=== PATIENT | female | born 1970 | race Caucasian/White ===

== ENCOUNTER 2022-07-12 17:00 | Outpatient (RCR) | payer OTHER, SELFPAY | END 2022-08-16 16:56 | disposition home or self-care (01) | LOC: HO.PT 17:00 | PROVIDERS: PCP Physician Assistant Medical; Visit Provider Orthopaedic Surgery | DX: Z98.890 Other specified postprocedural states (principal) | CPT/HCPCS: 97110; 97112; 97116; 97140; 97161 ==

== ENCOUNTER 2025-04-11 08:35 | Emergency (ER) | payer OTHER, SELFPAY ==
--- NOTE | ~2025-04-11 | XR_ITS ---
EXAMINATION: XR HIP, RIGHT CLINICAL INFORMATION: Rt hip pain COMPARISON: None available. TECHNIQUE: AP pelvis and AP and frog-leg views of the right hip. FINDINGS: SI joints are symmetrical and not degenerated. Pubic symphysis joint demonstrates chondrocalcinosis.. Pelvic calcifications are likely phleboliths. The right hip joint demonstrates minimal axial joint space narrowing with moderately sized marginal osteophytes on the femoral head and small acetabular osteophytes. Small faint calcific density is visible cephalad to the right greater trochanter. XR/XR hip RT w PEL1V IMPRESSION: Moderate osteoarthritis of the right hip joint is likely secondary to CPPD arthropathy. Possible calcific tendinitis of the right gluteal tendons. Electronically signed by: Ramirez Barajas MD 04/11/2025 10:48 AM EDT
--- NOTE | ~2025-04-11 | US_ITS ---
EXAMINATION: US TRIPLEX LOWER EXTREMITY, RIGHT CLINICAL INFORMATION: Right lower extremity edema COMPARISON: None available. TECHNIQUE: Color-flow triplex imaging with spectral analysis and compression Doppler were performed on the right lower extremity. FINDINGS: Respiratory variation, normal compression and augmented flow are noted throughout the right lower extremity. The visualized common femoral vein, superficial femoral vein, profunda femoral vein, popliteal vein and midcalf peroneal and posterior tibial venous segments show no evidence of deep venous thrombosis. US/US venous duplex LE RT IMPRESSION: No evidence of deep venous thrombosis involving the right lower extremity. Electronically signed by: Ramirez Barajas MD 04/11/2025 11:00 AM EDT
[2025-04-11 09:19] VITALS: BP 111/51; PULSE 63; RESP 18; TEMP 36.8; O2SAT 96; BMI 26.4
--- OUTSIDE RECORDS SUMMARY | 2025-04-11 10:40 | XMS_ITS ---
Author Name [facility] Organization Unknown Care Team Organization Name Specialty Phone Email Start Date End Da te [facility] Abhishek Bhatt DO Primary Care 06/07/202202/28
--- OUTSIDE RECORDS SUMMARY | 2025-04-11 10:40 | XMS_ITS | Clinical Summary ---
Author Organization [facility] [address] [facility] [address] Address [address] [place] [address] Phone Care Team Providers Care Icu Clerk Name Role Phone Abhishek Bhatt DO Primary Care Provider [phone] Surgical History Surgery Date Site/Laterality Comments BACK SURGERY 2005 PROCEDURE: HISTORICAL BACK SURGERY; COMMENT: spinal infusion with titanium disc replacement. Dr. Zayas OTHER SURGICAL HISTORY 1995 PROCEDURE: [place] UNLISTED PROCEDURE VASCULAR SURGERY; COMMENT: varicose veins right leg - [facility] COLONOSCOPY 05/18/2022 PROCEDURE: HISTORICAL COLONOSCOPY; COMMENT: tubular adenoma Medical History Medical History Date Comments Herniated lumbar intervertebral disc DX:Herniated lumbar intervertebral disc Hepatitis C DX:Hepatitis C Depression DX:Depression Anxiety state DX:Anxiety state Family History Medical History Relation Name Comments Other: herniated discs Brother 1 Other: herniated disc Brother 2 Titani um rods Alcohol/Drug Father Diabetes Father Other cancer Father pancreatic Heart attack Maternal Grandfather Heart attack Maternal Grandmother Other: Liver Cancer Paternal Grandfather Other cancer Sister 1 Breast cancer, diagnosed age 44 yr Relation Name Status Comments Brother 1 Brother 2 Brother 3 Alive Asthma - hernia shirley disc Brother 4 Alive titianium rods in back age 35 years Father Bone Cancer - D iabetes- Alcoholism Maternal Grandfather (Age 49) [place] Maternal Grandmother (Age 65) [place] Mother (Age 69) f rom C-diff Paternal Grandfather (Age 70) li zita cancer Paternal Grandmother (Age 98) Sister 1 Sister 2 Alive Sister 3 Alive Breast cancer Social History Tobacco Use Types Packs/Day Years Used Date Smoking Tobacco: Every Day Cigarettes Smokeless Tobacco: Never Alcohol Use Standard Drinks/Week Comments Not Currently 0.8 (1 standard drink = 0.6 oz p ure alcohol) Housing Instability Answer Date Recorde d Are you worried that in the next 2 months you may not have stable housing? Yes 10/25/2024 Food Access & Nutrition Answer Date Rec orded Do you have access to a vari ety of food including fruits and vegetables? No 10/25/2024 Access to Healthcare Answer Date Record ed Within the last 3 months, ho w many times did you visit the emergency department for your medical care? 0 10/25/2024 Health Literacy Answer Date Recorded How often do you need to hav e someone help you when you read instructions, pamphlets, or other written material from your doctor or pharmacy? Never 10/25/2024 Caregiver: How often do you need to have someone help you when you read instructions, pamphlets, or other written material from your doctor or pharmacy? Not on file 10/25/2024 Financial Risk Answer Date Recorded How hard is it for you to pa y for the very basics like food, housing, medical care, and air conditioning / heating? Very hard 10/25/2024 Transportation Answer Date Recorded Has the lack of transportati on kept you from meetings, work, or from getting things needed for daily living? No Has the lack of transportati on kept you from medical appointments or from getting medications? No 10/25/2024 Social Isolation Answer Date Recorded How often do you feel lonely or isolated from those around you? Sometimes 10/25/2024 Food Risk Answer Date Recorded Within the past 12 months we worried whether our food would run out before we got money to buy more. Sometimes true 025 Within the past 12 months th e food we bought just didn't last and we didn't have money to get more. Sometimes true 10/25/2024 Dependent Care Answer Date Recorded Do you need help finding or paying for care for your loved ones. For example, director of early childhood or elderly care for an older adult? No 10/25/2024 Education Answer Date Recorded Do you think completing more education or training, like finishing a GED, going to college, or learning a trade, would be helpful for you? Patient declined 10/25/2024 Employment and Income Answer Date Recor ded During the last four weeks, have you been actively looking for work? Patient declined 10/25/2024 Living Situation Answer Date Recorded What is your living situation? 0 10/25/2024 Comments Unknown Sex and Gender Information Value Date Recorded Sex Assigned at Not on file Legal Sex Female 1:07 PM EST Gender Identity Not on file Sexual Orientation Not on file Obstetrics History Last Filed Vital Signs Vital Sign Reading Time Taken Comments Blood Pressure 128/59 07/27/2023 10:01 AM EST Pulse 67 07/27/2023 10:01 AM EST Temperature - - Respiratory Rate - - Oxygen Saturation - - Inhaled Oxygen Concentration - - Weight 72.5 kg (159 lb 12.8 oz) 023 10:01 AM EST Height 154.9 cm (5' 1 ) 07/27/2023 10:0 1 AM EST Body Mass Index 30.19 07/27/2023 10:01 AM EST Plan of Treatment Health Maintenance Due Date Last Done Comments Breast Cancer Screening 1968 Hepatitis A Vaccines (1 of 2 - Risk 2-dose series) 02/20/1987 Hepatitis B Vaccines (1 of 3 - 19+ 3-dose series) 02/20/1987 Pneumococcal Vaccine: 50+ Years (1 of 2 - PCV) 02/20/1987 Cervical Cancer Screening: P ap Smear 02/20/1989 Zoster Vaccines (1 of 2) 02/20/2018 Colorectal Cancer Screening: Colonoscopy 07/09/2022 HIV Screening 07/09/2022 Hepatitis C Screening 07/09/2022 DTaP,Tdap,and Td Vaccines (2 - Td or Tdap) 10/31/2023 10/30/2013 COVID-19 Vaccine (4 - 2024-2 6 season) 2025 09/21/2021, 12/07/2020, 11/07/2020 Influenza Vaccine (#1) 2025 , 04/23/2016 Social Influencers of Health Screening 10/25/2025 10/25/2024 Depression Screening Completed 10/25/2024 HIB Vaccines Aged Out No longer eligi ble based on patient's age to complete this topic HPV Vaccines Aged Out No longer eligi ble based on patient's age to complete this topic IPV Vaccines Aged Out No longer eligi ble based on patient's age to complete this topic MMR Vaccines Aged Out No longer eligi ble based on patient's age to complete this topic Meningococcal ACWY Vaccine Aged Out N o longer eligible based on patient's age to complete this topic Meningococcal B Vaccine Aged Out No l onger eligible based on patient's age to complete this topic RSV Immunization Patients Under 20 months Aged Out No longer eligible b ased on patient's age to complete this topic Varicella Vaccines Aged Out No longer eligible based on patient's age to complete this topic Insurance AET[employer] Care Teams Icu Clerk Relationship Specialty Start Date End Date Abhishek Bhatt DO PCP - General Internal Medicine 10/04/21
[2025-04-11 11:25] VITALS: BP 113/64; PULSE 63; RESP 20; TEMP 36.8; O2SAT 97
[2025-04-11 11:57] LABS: MANUAL DIFF FLAG NO
[2025-04-11 12:01] LABS: Hematocrit 34.5 % (37.0-47.0); Hemoglobin 11.5 g/dl (12.0-16.0); Imm Gran Abs Auto 0.03 X10*3/uL (0.00-0.03); Imm Gran Pct Auto 0.5 % (0.0-0.4); Lymphocytes Absolute Auto 1.8 X10*3/uL (1.2-4.9); Mean Corpuscular HGB Conc 33.3 g/dl (31.0-35.0); Mean Corpuscular Hemoglobin 34.0 pg (27.0-33.0); Mean Corpuscular Volume 102.1 fL (80.0-98.0); NRBC Abs Auto 0.000 X10*3/uL (0.0-0.012); NRBC Pct Auto 0.0 /100WBC (0.0-0.2); Platelet Count 175 X10*3/uL (160-400); Red Blood Count 3.38 X10*6/uL (4.20-5.50); White Blood Count 6.6 X10*3/uL (4.8-10.8)
--- NOTE | 2025-04-11 12:01 | ED.GENADULT ---
HPI - General Adult General Chief complaint: Extremity Problem Stated complaint: right leg issue Time Seen by Provider: 04/11/25 09:22 Source: patient Mode of arrival: ambulatory Limitations: no limitations History of Present Illness ED Provider: LIZ Cowan HPI narrative: This is a 55-year-old female presenting to the emergency department with complaints of right hip pain ongoing for the past month or so progressively worsening she reports stiffness and difficulty with external rotation. She tells me that she thought it would go away on its own however it does not seem to be helping. She also tells me that she noted pain behind the right knee and right lower extremity swelling over the past few days. This is what prompted her to come in today. She denies associated chest pain, shortness of breath, trauma. She denies history of DVT or PE. Not anticoagulated. No recent travel, not on OCPs. She is a daily smoker however. Related Data Home Medications ?Medication ?Instructions ?Recorded ?Confirmed buspirone 7.5 mg tablet 7.5 mg PO TID 04/11/25 04/11/25 sertraline 100 mg tablet 150 mg PO DAILY 04/11/25 04/11/25 trazodone 50 mg tablet 25 - 50 mg PO BEDTIME 04/11/25 04/11/25 Previous Rx's ?Medication ?Instructions ?Recorded ketorolac 10 mg tablet 10 mg PO TID PRN pain 5 days #15 04/11/25 tabs Allergies Allergy/AdvReac Type Severity Reaction Status Date / Time acetaminophen (From Vicodin) Allergy Intermediate Vomiting Verified 04/11/25 09:21 hydrocodone (From Vicodin) Allergy Intermediate Vomiting Verified 04/11/25 09:21 Review of Systems Review of Systems: Yes all other systems are reviewed and are negative [facility] Past Medical History Attestation statement: The following information was validated with the patient. Source: old records reviewed and nursing notes reviewed Social History Social History Advance Directives: No Advance Directives Information Provided: Yes Physical Exam ED Exam Exam: Appearance: Alert.? Oriented X3.? No acute distress.? Ambulating with steady gait normal coordination Head: Normocephalic, atraumatic, no step-offs or deformities Eyes: Pupils equal, round and reactive to light.? ENT: Pharynx normal.? Neck: Normal inspection.? Neck supple.? CVS: Normal heart rate and rhythm.? Pulses normal.? Respiratory: No respiratory distress.? Breath sounds normal.? Abdomen: Soft and nontender.? Skin: Skin warm and dry.? Normal skin color.? Normal skin turgor.? Extremities: No lower extremity edema.? No calf ttp. 5/5 strength to bilateral upper and lower extremities 2+ dorsalis pedis, anterior tibialis posterior tibialis pulses equal bilateral. Negative Homans bilaterally. Painful external rotation of right hip however normal flexion, extension. Normal range of motion to left hip. Neuro: Oriented X 3.? No motor deficit.? No sensory deficit. CN 2-12 intact Vital Signs: Vital Signs - 24 hr 04/11/25 09:19 04/11/25 11:25 Temperature 98.3 F 98.3 F Pulse Rate 63 63 Respiratory Rate 18 20 Blood Pressure 111/51 L 113/64 Pulse Oximetry 96 97 Oxygen Delivery Method Room Air Room Air BMI result Body Mass Index 26.4 vss Course Reevaluation(s) Reevaluation #1: Venous duplex no evidence of DVT to right lower extremity. 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 Patient will be given Toradol and patient will be discharged home on same. Will have her follow up with the orthopedic team. Educated patient on diagnosis and treatment plan, answered all question, patient verbalizes understanding. At this time patient will be discharged home, advised to return with new or worsening symptoms. Educated on worrisome signs and symptoms and when to return. At this time I feel comfortable discharge home. Time: 12:06 Medical Decision Making Medical Decision Making MDM Narrative: 55-year-old female presents with right lower extremity swelling times few days and right hip pain ongoing for a month. No history of DVT or PE. Not anticoagulated. Not high-risk for these. Physical exam significant for 5/5 strength to bilateral upper and lower extremities 2+ dorsalis pedis, anterior tibialis posterior tibialis pulses equal bilateral. Negative Homans bilaterally. Painful external rotation of right hip however normal flexion, extension. Normal range of motion to left hip. History and physical exam concerning for dependent edema as it is not currently present at this time. Unlikely arterial or venous occlusion. Right hip pain likely tendinopathy versus oa. Unlikely necrosis of hip, fracture dislocation as this is atraumatic. No signs of neurovascular compromise or acute threat to limb. Will obtain imaging of hip/pelvis and venous duplex of right lower extremity. Differential Diagnosis Differential Diagnoses: The differential diagnosis associated with the presentation includes (History and physical exam concerning for dependent edema as it is not currently present at this time. Unlikely arterial or venous occlusion. Right hip pain likely tendinopathy versus oa. Unlikely necrosis of hip, fracture dislocation as this is atraumatic. No signs of neurovascular compromise or) Admission/Observation Consideration of admission/observation: Escalation of care including admission/observation considered Lab Data MDM Lab Attestation statement: I reviewed the patient's lab results. 04/11/25 11:51 04/11/25 11:51 Independent Interpretation I performed an independent interpretation of an: Plain X-Ray ( XR/XR hip RT w PEL1V IMPRESSION: Moderate osteoarthritis of the right hip joint is likely secondary to CPPD arthropathy. Possible calcific tendinitis of the right gluteal tendons.) and Ultrasound (FINDINGS: Respiratory variation, normal compression and augmented flow are noted throughout the right lower extremity. The visualized common femoral vein, superficial femoral vein, profunda femoral vein, popliteal vein and midcalf peroneal and posterior tibial venous segments show no evidence of) Radiology Impression Discussion of test interpretation with radiology: I have reviewed the radiologist's reading. External Record Review External record reviewed: Inpatient record, Office record, Outpatient record, Prior outpatient labs, Prior outpatient radiology, Primary care record and Outside ED record Critical Care Time Critical Care Time Critical Care Time: No Discharge Plan Discharge Clinical Impression: Lower extremity edema, Acute pain of right hip Patient Disposition: Home, Self-Care Instructions: Leg Edema (ED), Hip Pain (ED) Additional Instructions: Take your medications as prescribed. If you were prescribed antibiotics today, it is important that you take your medication to their entirety, do not skip any doses, do not finish them early. Follow-up with your primary care provider this week. Return to the emergency department with new or worsening symptoms. Such as fevers, chills, chest pain, shortness of breath, nausea, vomiting, dizziness, headache, vision changes, lethargy In case of emergency call 911 Prescriptions: New ketorolac 10 mg tablet 10 mg PO TID PRN (Reason: pain) 5 Days Qty: 15 0RF Rx Instructions: Tolerated IM or IV in department No Action trazodone 50 mg tablet 25 - 50 mg PO BEDTIME sertraline 100 mg tablet 150 mg PO DAILY buspirone 7.5 mg tablet 7.5 mg PO TID Referrals: [facility] Orthopedic Surgeons [Provider Group] Stand Alone Forms: Work/School Release Print Language: British
[2025-04-11 12:18] LABS: Alanine Aminotransferase 17 U/L (0-31); Albumin Level 3.9 g/dL (3.5-5.0); Alkaline Phosphatase 68 U/L (39-117); Anion Gap 11 (12-20); Aspartate Amino Transferase 31 U/L (5-31); Blood Urea Nitrogen 11 mg/dL (9-16); Calcium 8.6 mg/dL (8.4-10.2); Carbon Dioxide 28 mmol/L (22-29); Chloride 109 mmol/L (96-108); Creatinine Clr Calc Pharmacy 85.4; Estimated Glomerular Filt Rate > 60; Magnesium 2.0 mg/dL (1.6-2.6); Potassium 3.8 mmol/L (3.3-5.1); Sodium 144 mmol/L (135-145); Total Protein 6.2 g/dL (6.5-8.0)
[2025-04-11 12:22] LABS: B Type Natriuretic Peptide 51 pg/mL (<100)
[2025-04-11 13:18] VITALS: BP 113/64; PULSE 63; RESP 20; TEMP 36.8; O2SAT 97
== END 2025-04-11 13:18 | disposition home or self-care (01) ==
PROVIDERS: Physician Assistant; Emergency Provider Emergency Medicine
DX: R60.0 Localized edema (principal); M25.551 Pain in right hip; M16.11 Unilateral primary osteoarthritis, right hip; Z79.899 Other long term (current) drug therapy
CPT/HCPCS: 36415; 73502; 80053; 83735; 83880; 85025; 93971; 96372; 99283; 99284; J1885

== ENCOUNTER → 2025-04-11 10:00 | Outpatient (BNV) | payer OTHER, SELFPAY | PROVIDERS: Emergency Provider Emergency Medicine; Visit Provider Radiology Diagnostic Radiology | DX: R60.0 Localized edema (principal); M16.11 Unilateral primary osteoarthritis, right hip | CPT/HCPCS: 73502; 93971 ==

== ENCOUNTER 2025-05-29 13:52 | Outpatient (AMB) | payer OTHER, SELFPAY ==
--- NOTE | 2025-05-29 13:55 | A.OFFVIS_ITS ---
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 Patient reports that she has had ongoing hip pain tfor quite some time but it has worsened within the last month. She explains that she has limited ROM - when she abducts and adducts she feels pulling in her groin. Pain is felt through the left leg and described as a burning constant pain. She has a constant numbness and tingling. She lives on the third floor which is very difficult. She has been taking Ketorlac that was prescribe from the ED - this is only mildly & temporarily helpful Hx of Right Achilles tendon repair about 3 years ago at [facility] - she did not have an injury that caused the tearing. She had a fall after the surgery where she felt like the tendon stretched. Since then she has had a foot drop sensation Hx of Right Leg vascular surgery through the entire right leg Allergies acetaminophen (From Vicodin) Allergy (Intermediate, Verified 04/11/25 09:21) Vomiting hydrocodone (From Vicodin) Allergy (Intermediate, Verified 04/11/25 09:21) Vomiting amoxicillin Allergy (Verified 05/29/25 14:00) Diarrhea HPI HPI LOGISTICS TEAM LEADER-right hip osteoarthritis: Details: Martha is a 55-year-old woman who comes in today with right hip osteoarthritis and pain. She describes being unable to get through a day without difficulty. She can not walk limp. She describes debilitating right hip pain. This has been present for many months but over the last several months has been difficult to tolerate. She even went so far as to go to the emergency room and was given high dose NSAIDs. None of this was helpful. [facility] Surgical History History of Achilles tendon repair Review of Systems Const All systems reviewed & are unremarkable except as noted in HPI and below Eyes Reports no additional complaints ENT Reports no additional complaints Card Reports no additional complaints Resp Reports no additional complaints GI Reports no additional complaints Musc Details: knee pain Reports as per HPI Skin/Breast Reports system reviewed and no additional complaints, except as documented Neuro Reports no additional complaints and Reports as per HPI Psych Reports no additional complaints Physical Exam Const General: cooperative, healthy appearing, no acute distress, well developed and alert HEENT Head: Yes normal to inspection, Yes normocephalic and Yes atraumatic Mouth: moist mucous membranes Eyes General: appearance normal, both eyes and all related structures EOM: EOMs intact bilaterally Chest Other: no audible wheezing. Resp Other: No audible wheezing Effort & Inspection: normal respiratory effort Cardio Other: Radial pulse palpable with no rythmic abnormalities Back/Spine/Pelvis Cervical Spine: normal cervical lordosis Skin General skin exam: no rashes or lesions noted Neuro General: no focal motor deficits Extrem Other: Positive Trendelenburg gait. She has extremely limited internal rotation of the right hip with a markedly positive impingement test. Positive Stinchfield test. 2+ dorsalis pedis pulse with good knee and ankle strength Psych Appearance: grossly normal and well kempt Mental Status: mental status grossly normal Speech and movement: Normal speech and movement present Affect: normal affect Attitude: cooperative Results Reviewed Results Reviewed: I personally reviewed relevant radiographs. Right hip demonstrates osteophytes, subchondral sclerosis and loss of weight- bearing joint surface consistent with moderate to severe osteoarthritis. Assessment & Plan Assessment & Plan (1) Osteoarthritis of right hip: Code(s): M16.11 - Unilateral primary osteoarthritis, right hip Category: Medical Plan: This is a healthy 55-year-old woman with right hip osteoarthritis. She walks w ith a limp and has difficulty getting through her day without difficulty. She has tried NSAIDs and activity modification but continues to have pain. She feels like it is not getting better. We discussed treatment options including injections, physical therapy and surgery. Given her high demands and her lack of ability to engage in daily activities without pain I recommend right hip replacement. [place] details with her including deep risks, benefits and alternatives. I discussed the risk of infection, fracture, dislocation, incomplete symptom resolution as well as the need for additional surgery and complications such as blood clots, pneumonia, urinary tract infection or organ dysfunction. She is a smoker and will be required to cease smoking prior to surgery. She understands this. I will introduce her to our nurse navigator and we will begin the preoperative clearance process. Coding Level of Care Code New Pt Level 4 (80472) Diagnoses Osteoarthritis of right hip M16.11
--- OUTSIDE RECORDS SUMMARY | 2025-05-29 16:50 | XMS_ITS | Clinical Summary ---
Author Organization [facility] [address] [facility] [address] Address [address] [place] [address] Phone Care Team Providers Care Principal Systems Architect Name Role Phone Abhishek Bhatt DO Primary Care Provider [phone] Surgical History Surgery Date Site/Laterality Comments BACK SURGERY 2005 PROCEDURE: HISTORICAL BACK SURGERY; COMMENT: spinal infusion with titanium disc replacement. Dr. Zayas OTHER SURGICAL HISTORY 1995 PROCEDURE: [place] UNLISTED PROCEDURE VASCULAR SURGERY; COMMENT: varicose veins right leg - [facility] COLONOSCOPY 05/18/2022 PROCEDURE: HISTORICAL COLONOSCOPY; COMMENT: tubular [...] D iabetes- Alcoholism Maternal Grandfather (Age 49) [place] Maternal Grandmother (Age 65) [place] Mother (Age 69) f rom C-diff Paternal [...] care for your loved ones. For example, child care centre director or elderly care for an older adult? [...] Date Recorded What is your living situation? Unrecognized valu e 10/25/2024 Comments Unknown Sex and Gender Information [...] Last Done Comments Breast Cancer Screening 1968 Colorectal Cancer Screening: Colonoscopy 1968 Hepatitis A Vaccines (1 of 2 - Risk 2-dose series) 02/20/1987 Hepatitis B Vaccines (1 of 3 - 19+ 3-dose series) 02/20/1987 Pneumococcal Vaccine: 50+ Years (1 of 2 - PCV) 02/20/1987 Cervical Cancer Screening: P ap Smear 02/20/1989 RSV Immunization Adult Patients (1 - Risk 50-74 years 1-dose series) 02/20/2018 Zoster Vaccines (1 of 2) 02/20/2018 HIV Screening 07/09/2022 Hepatitis C Screening 07/09/2022 [...] complete this topic Insurance [employer] Care Teams Principal Systems Architect Relationship Specialty Start Date End Date Abhishek Bhatt DO PCP - General Internal Medicine 10/04/21
== END 2025-05-29 15:00 | disposition home or self-care (01) ==
LOC: HO.HOS 13:53
PROVIDERS: Visit Provider Orthopaedic Surgery
DX: M16.11 Unilateral primary osteoarthritis, right hip (principal)
CPT/HCPCS: 99204